=== PATIENT | female | born 1980 | race Caucasian/White ===

== ENCOUNTER 2021-01-07 20:12 | Observation (INO) | payer MEDICAID ==
[~2021-01-07] VITALS: Ht 160 cm; Wt 100.0 kg
[2021-01-07] MEDS ORDERED: EFFEXOR XR150 MG PO (20:22)
[2021-01-07] MEDS ORDERED: LISINOPRIL2.5 MG PO (20:22)
[2021-01-07] MEDS ORDERED: LANTUS INS100 UNITS/ SC (20:22)
[2021-01-07] MEDS ORDERED: BAYER CHEWABLE81 MG PO (20:23)
[2021-01-07] MEDS ORDERED: PROTONIX20 MG PO (20:23)
[2021-01-07] MEDS ORDERED: LIPITOR20 MG PO (20:23)
[2021-01-07] MEDS ORDERED: PLAVIX75 MG PO (20:23)
[2021-01-07] MEDS ORDERED: TOPROL XL25 MG PO (20:23)
[2021-01-07] MEDS ORDERED: TORADOL10 MG PO (20:24)
[2021-01-07] MEDS ORDERED: KLONOPIN1 MG PO (20:24)
[2021-01-07 21:51] LABS: CALC OSMOLALITY 280 mosm/kg (275-300); CARBON DIOXIDE 24.7 mmol/L (21.0-32.0); CHLORIDE - SERUM 104 mmol/L (98-107); CREATININE - SERUM 0.7 mg/dL (0.6-1.3); GLUCOSE 156 mg/dL (74-106); SODIUM 139 mmol/L (136-145); UREA NITROGEN 13 mg/dL (7-18); eGFR NON AFRICAN AMERICAN > 90 mL/min (90-120)
[2021-01-07 21:54] LABS: BASOPHILS 0.5 % (0-2); EOSINOPHILS 2.5 % (0-7); HEMOGLOBIN 13.8 g/dL (12-16); LYMPHOCYTES 23.8 % (15-50); MCH 28.2 pg (26.0-34.0); MCHC 33.6 g/dL (31.0-37.0); MCV 83.8 fL (80.0-100.0); MEAN PLATELET VOLUME 8.3 fL (7.4-10.4); MONOCYTES 5.5 % (2-11); NEUTROPHILS 67.7 % (40-80); PLATELET COUNT 238 10x3/uL (130-400); RDW 13.8 % (11.5-14.5); WBC 6.8 10x3/uL (4.8-10.8)
[2021-01-07 22:06] LABS: ALBUMIN 3.5 g/dL (3.4-5.0); ALKALINE PHOSPHATASE 65 U/L (30-120); ALT (SGPT) 38 U/L (10-68); BILIRUBIN - TOTAL 0.28 mg/dL (0.2-1.3); LIPASE 81 U/L (73-393); MAGNESIUM - SERUM 1.9 mg/dL (1.8-2.4); PRO BNP 205 pg/mL (0-125); PROTEIN - SERUM 7.4 g/dL (6.4-8.2)
[2021-01-07 22:08] LABS: C-REACTIVE PROTEIN < 0.2 mg/dL (0.0-0.9); TROPONIN-I < 0.017 ng/mL (0.000-0.060)
[2021-01-07 22:40] LABS: APTT 31.8 SECONDS (22.8-39.4); INR 1.12 (0.85-1.17); PROTIME 13.3 SECONDS (11.6-15.0)
--- NOTE | 2021-01-07 22:50 | NUR ---
URINE SENT TO LAB
[2021-01-07 23:03] LABS: BILIRUBIN NEGATIVE (NEGATIVE); KETONE NEGATIVE (NEGATIVE); NITRITE NEGATIVE (NEGATIVE); UROBILINOGEN NORMAL mg/dL (< 2)
[2021-01-07 23:10] LABS: UDS - AMPHET NEGATIVE QUAL (NEGATIVE); UDS - BARB NEGATIVE QUAL (NEGATIVE); UDS - BENZO NEGATIVE QUAL (NEGATIVE); UDS - COCAINE NEGATIVE QUAL (NEGATIVE); UDS - OPIATE POSITIVE QUAL (NEGATIVE); UDS - PCP NEGATIVE QUAL (NEGATIVE); UDS - THC NEGATIVE QUAL (NEGATIVE)
[2021-01-07] MEDS ORDERED: TRAZODONE HCL300 MG PO (23:39)
[2021-01-08 00:57] VITALS: BP 105/56; Ht 160 cm; Wt 100.0 kg
[2021-01-08 04:00] VITALS: BP 108/53
[2021-01-08 06:23] VITALS: BP 108/53
--- NOTE | 2021-01-08 07:15 | NUR ---
Pt found on floor beside bed, states "I fell asleep, rolled over, and fell out of bed" c/o sharp aching lt arm pain in area of her elbow nd her lt knee, both are 10/10.
[2021-01-08 07:22] LABS: CALC OSMOLALITY 277 mosm/kg (275-300); CALCIUM 8.6 mg/dL (8.5-10.1); CARBON DIOXIDE 25.9 mmol/L (21.0-32.0); CHLORIDE - SERUM 104 mmol/L (98-107); CREATININE - SERUM 0.8 mg/dL (0.6-1.3); GLUCOSE 172 mg/dL (74-106); PHOSPHOROUS 3.2 mg/dL (2.5-4.9); POTASSIUM - SERUM 3.8 mmol/L (3.5-5.1); SODIUM 137 mmol/L (136-145); UREA NITROGEN 13 mg/dL (7-18); eGFR NON AFRICAN AMERICAN 84 mL/min (90-120)
[2021-01-08 07:24] LABS: BASOPHILS 0.3 % (0-2); EOSINOPHILS 3.1 % (0-7); HEMOGLOBIN 12.9 g/dL (12-16); LYMPHOCYTES 26.5 % (15-50); MCH 28.6 pg (26.0-34.0); MCHC 33.9 g/dL (31.0-37.0); MCV 84.3 fL (80.0-100.0); MEAN PLATELET VOLUME 8.4 fL (7.4-10.4); MONOCYTES 5.9 % (2-11); NEUTROPHILS 64.2 % (40-80); PLATELET COUNT 209 10x3/uL (130-400); RBC 4.51 10x6/uL (4.00-5.40); RDW 13.7 % (11.5-14.5); WBC 7.7 10x3/uL (4.8-10.8)
--- NOTE | 2021-01-08 07:27 | NUR ---
Paged LEXIS Michelle
[2021-01-08 07:40] VITALS: BP 111/69
--- NOTE | 2021-01-08 07:40 | NUR ---
Paged LEXIS Cooney
--- NOTE | 2021-01-08 07:42 | NUR ---
Spoke with LEXIS Cooney, updated on pt fall, N>O> to xray lt elbow and lt knee.
--- NOTE | 2021-01-08 07:50 | NUR ---
Off unit for MRI in stable condition via w/c accompanied by hospital staff
--- NOTE | 2021-01-08 09:20 | NUR ---
Back to room in stable condition via w/c accompanied by hospital staff
[2021-01-08 11:36] VITALS: BP 108/68
[2021-01-08] MEDS ORDERED: HYDROCODON-ACE1 EA10 PO (14:35)
[2021-01-08] MEDS ORDERED: NICODERM CQ1 EAC3 TRANSDERM (14:47)
[2021-01-08] MEDS ORDERED: ZOFRAN4 MG PO (14:50)
--- NOTE | 2021-01-08 16:57 | NUR ---
Provided written/verbal discharge instructions/education to which pt verbally stated understanding, discontinued IV access/cardiac telemetry monitoring at this time, Director Kena provided copy of MRI report on shoulder and spine.
--- NOTE | 2021-01-08 17:00 | NUR ---
DC'd home to self care in stable condition after placing lt arm in a sling for immobilization of lt shoulder via w/c accompanied by hospital staff and family member, no s/s of acute distress observed.
== END 2021-01-08 17:00 | disposition home or self-care (01) ==
LOC: D.ER 20:12 → D.M2 23:11 → OBSVTIME 23:32 → D.M2 01-08 17:00
PROVIDERS: Family Medicine; ADMIT Emergency Medicine; ATTEND Emergency Medicine
DX: E11.9 Type 2 diabetes mellitus without complications (principal); I25.10 Atherosclerotic heart disease of native coronary artery without angina pectoris; R07.9 Chest pain, unspecified; I10 Essential (primary) hypertension; Z72.0 Tobacco use; Z79.4 Long term (current) use of insulin; M54.2 Cervicalgia; M25.512 Pain in left shoulder; E78.5 Hyperlipidemia, unspecified; K21.9 Gastro-esophageal reflux disease without esophagitis; F32.9 Major depressive disorder, single episode, unspecified; F41.9 Anxiety disorder, unspecified; F41.8 Other specified anxiety disorders; K58.9 Irritable bowel syndrome, unspecified

== ENCOUNTER 2021-01-22 13:51 | Emergency (ER) | payer MEDICAID ==
[~2021-01-22] VITALS: Ht 160 cm; Wt 100.5 kg
[~2021-01-22 13:51] MED LIST: BAYER CHEWABLE81 MG PO; EFFEXOR XR150 MG PO; HYDROCODON-ACE1 EA10 PO; KLONOPIN1 MG PO; LANTUS INS100 UNITS/ SC; LIPITOR20 MG PO; LISINOPRIL2.5 MG PO; NICODERM CQ1 EAC3 TRANSDERM; PLAVIX75 MG PO; PROTONIX20 MG PO; TOPROL XL25 MG PO; TORADOL10 MG PO; TRAZODONE HCL300 MG PO; ZOFRAN4 MG PO
[2021-01-22 13:56] VITALS: BP 122/79; Ht 160 cm; Wt 100.5 kg
[2021-01-22] MEDS ORDERED: HYDROCODON-ACE1 EA10 PO (15:12)
[2021-01-22] MEDS ORDERED: PREDNISONE50 MG PO (15:12)
== END 2021-01-22 15:54 | disposition home or self-care (01) ==
LOC: D.ER 13:51
DX: M77.8 Other enthesopathies, not elsewhere classified (principal); M79.602 Pain in left arm; M54.12 Radiculopathy, cervical region; E11.9 Type 2 diabetes mellitus without complications; E78.5 Hyperlipidemia, unspecified; I10 Essential (primary) hypertension; Z72.0 Tobacco use; Z79.4 Long term (current) use of insulin

== ENCOUNTER 2021-01-23 00:19 | Emergency (ER) | payer MEDICAID ==
[~2021-01-23] VITALS: Ht 160 cm; Wt 100.5 kg
[~2021-01-23 00:19] MED LIST changes: +PREDNISONE50 MG PO
[2021-01-23 00:25] VITALS: BP 141/96; Ht 160 cm; Wt 100.5 kg
[2021-01-23 01:52] LABS: BASOPHILS 0.1 % (0-2); EOSINOPHILS 0 % (0-7); HEMATOCRIT 41.3 % (36.0-48.0); HEMOGLOBIN 13.8 g/dL (12-16); LYMPHOCYTES 6.5 % (15-50); MCH 28.7 pg (26.0-34.0); MCHC 33.4 g/dL (31.0-37.0); MEAN PLATELET VOLUME 8.9 fL (7.4-10.4); MONOCYTES 1.2 % (2-11); NEUTROPHILS 92.2 % (40-80); PLATELET COUNT 247 10x3/uL (130-400); RDW 13.9 % (11.5-14.5); WBC 9.1 10x3/uL (4.8-10.8)
[2021-01-23 02:03] LABS: CALC OSMOLALITY 279 mosm/kg (275-300); CARBON DIOXIDE 20.3 mmol/L (21.0-32.0); CHLORIDE - SERUM 97 mmol/L (98-107); CREATININE - SERUM 0.9 mg/dL (0.6-1.3); POTASSIUM - SERUM 4.8 mmol/L (3.5-5.1); SODIUM 133 mmol/L (136-145); UREA NITROGEN 13 mg/dL (7-18); eGFR NON AFRICAN AMERICAN 73 mL/min (90-120)
[2021-01-23 02:04] LABS: GLUCOSE 359 mg/dL (74-106)
[2021-01-23 02:08] LABS: ALBUMIN 3.7 g/dL (3.4-5.0); ALKALINE PHOSPHATASE 71 U/L (30-120); ALT (SGPT) 27 U/L (10-68); BILIRUBIN - TOTAL 0.17 mg/dL (0.2-1.3); C-REACTIVE PROTEIN 0.4 mg/dL (0.0-0.9); MAGNESIUM - SERUM 1.9 mg/dL (1.8-2.4); PRO BNP 105 pg/mL (0-125); THYROID STIMULATING HORMONE 0.48 uIU/mL (0.36-3.74)
[2021-01-23 02:10] LABS: TROPONIN-I < 0.017 ng/mL (0.000-0.060)
== END 2021-01-23 02:25 | disposition left against medical advice (07) ==
LOC: D.ER 00:19
PROVIDERS: Family Medicine
DX: E11.9 Type 2 diabetes mellitus without complications (principal); R07.9 Chest pain, unspecified; I25.10 Atherosclerotic heart disease of native coronary artery without angina pectoris; G89.29 Other chronic pain; Z53.29 Procedure and treatment not carried out because of patient's decision for other reasons; I10 Essential (primary) hypertension; E78.5 Hyperlipidemia, unspecified; Z72.0 Tobacco use; Z79.4 Long term (current) use of insulin